=== PATIENT | female | born 1970 | race Caucasian/White ===

== ENCOUNTER 2024-08-15 20:35 | Emergency (ER) | payer SELFPAY ==
[2024-08-15 20:38] VITALS: BP 134/74; PULSE 74; RESP 18; TEMP 36.3; O2SAT 98; BMI 34.4
--- NOTE | 2024-08-15 21:34 | CT_ITS ---
EXAM: CT ANGIOGRAPHY HEAD WITHOUT AND WITH INTRAVENOUS CONTRAST CLINICAL INDICATION: headaches x 5 years TECHNIQUE: [facility] [place]/head CT angiography protocol performed without and with intravenous contrast. This CT exam was performed using one or more of the following dose reduction techniques: automated exposure control, adjustment of the mA and/or kV according to patient size, and/or use of iterative reconstruction technique. MIP reconstructed images were created and reviewed. CONTRAST: IV 75mL [id number] COMPARISON: No relevant prior studies available. FINDINGS: VASCULATURE: RIGHT INTERNAL CAROTID ARTERY: No significant findings. No significant stenosis at the intracranial/visualized segments. No aneurysm. RIGHT ANTERIOR CEREBRAL ARTERY: No significant abnormality. No occlusion or significant stenosis. Anterior communicating artery is present. No aneurysm. RIGHT MIDDLE CEREBRAL ARTERY: No significant abnormality. No occlusion or significant stenosis. No aneurysm. RIGHT POSTERIOR CEREBRAL ARTERY: No significant abnormality. No occlusion or significant stenosis. No aneurysm. RIGHT VERTEBRAL ARTERY: Normal as visualized. No significant stenosis at the intradural/visualized segments. No aneurysm. LEFT INTERNAL CAROTID ARTERY: Mild luminal irregularity of the cavernous segment of the left internal carotid artery likely secondary to arteriosclerosis without critical stenosis. No distinct aneurysm. LEFT ANTERIOR CEREBRAL ARTERY: No significant abnormality. No occlusion or significant stenosis. No aneurysm. LEFT MIDDLE CEREBRAL ARTERY: No significant abnormality. No occlusion or significant stenosis. No aneurysm. LEFT POSTERIOR CEREBRAL ARTERY: No significant abnormality. No occlusion or significant stenosis. No aneurysm. LEFT VERTEBRAL ARTERY: Normal as visualized. No significant stenosis at the intradural/visualized segments. No aneurysm. BASILAR ARTERY: No significant abnormality. No significant stenosis. No aneurysm. OTHER VASCULATURE: No vascular malformation. HEAD: BRAIN AND EXTRA-AXIAL SPACES: There is non-specific periventricular hypoattenuation which is most commonly related to chronic microvascular ischemic disease in a patient of this age. There is no mass, mass-effect, or shift of the midline structures. No evidence of acute infarct or acute intracranial hemorrhage. There is no evidence of pathologic extra-axial fluid. There is no hydrocephalus. Patent basal cisterns. Posterior fossa structures are unremarkable. BONES/JOINTS: No significant abnormality. No discrete lytic or blastic abnormalities. SINUSES: Normal as visualized. Clear. MASTOID AIR CELLS: Normal as visualized. Clear. ORBITS: Visualized globes, extraocular muscles, optic nerves and retrobulbar fat appear unremarkable. CT/CTA Head W/WO Contrast IMPRESSION: 1. Chronic microvascular ischemic changes. No evidence of acute infarct or hemorrhage. 2. No large vessel occlusion or critical arterial stenosis in the head. No vascular malformation or aneurysm. Electronically Signed: Thom Kelley DO at 22:52 EDT ,
--- NOTE | 2024-08-15 21:35 | EX.ED.VIS.HA ---
HPI History of Present Illness Chief Complaint: Headache Detail of Chief Complaint: Headache Informant: patient Narrative Narrative: Patient presents to the emergency department with complaint of a headache that started 2 hours ago. Patient states that she has been getting frequent headaches at least 1 a month for the last 5 years. Patient states has been getting Depo Provera for about 5 years but her last shot was in December of this year. She had sudden onset of headache tonight that was frontal and was severe. She denies any falls or head injuries. She denies recent illness. She denies family history of brain tumor or aneurysm. Patient states that currently her headache is actually dissipating and rates it down to a 2 or 3 out of 10. Typically when she gets the headache she does not have photophobia or nausea or vomiting. Patient has not seen anybody for these headaches. PFSH PFSH Allergy/AdvReac Type Severity Reaction Status Date / Time No Known Allergies Allergy Verified 08/15/24 20:38 Social History (System 06/16/19 @ 15:41 by Lydia Gallegos) Smoking Status: Never smoker ROS ROS ED Review of Systems ROS Unobtainable: other Constitutional Constitutional ED: Reports lethargy; Denies chills, fever(s), sweats or weight loss Eyes Eyes: Denies blurry vision, change in vision or diplopia ENT ENT ED: Denies rhinorrhea or sore throat Cardiovascular Cardiovascular: Denies chest pain, orthopnea or racing heartbeat Respiratory/Chest Respiratory/Chest: Denies cough, dyspnea, dyspnea on exertion, orthopnea or sputum Gastrointestinal Gastrointestinal: Denies abdominal pain, diarrhea, nausea or vomiting Genitourinary Genitourinary ED: Denies dysuria, hematuria or urinary frequency Musculoskeletal Musculoskeletal: Denies arthralgias, back pain, myalgias or neck pain Integumentary Denies abscess, Abrasions or rash Neurologic Neurologic: Reports headache(s); Denies weakness Psychiatric Psychiatric: Denies anxiety, depression or suicidal thoughts Endocrine Endocrinology: Denies polydipsia, polyphagia or polyuria Hematologic/Lymphatic Hematologic/Lymphatic: Denies easy bleeding, easy bruising or lymphadenopathy Allergic/Immunologic Allergic/Immunologic ED: Denies mouth swelling, tongue swelling or urticaria EXAM Physical Exam Const Vital Signs: 08/15/24 20:38 08/15/24 22:37 Temperature 97.3 F L Temperature Source Temporal Pulse Rate 74 Respiratory Rate 18 Blood Pressure 134/74 H 139/88 H Blood Pressure Mean 94 105 Pulse Ox 98 Oxygen Delivery Method Room Air Positive well nourished and well developed General Appearance ED: well developed and NAD HEENT Reports TM's clear and moist mucous membranes normocephalic and atraumatic; Negative for trauma or tenderness Tympanic Membrane ED: Yes TM's clear Eyes PERRL and EOMs intact bilaterally General Eye ED: Negative for pale conjunctiva or scleral icterus Neck no lymphadenopathy, supple and no JVD General: Negative for tenderness Chest Wall inspection of chest normal and palpation of chest normal Chest: Negative for tenderness Resp normal respiratory effort and clear to auscultation bilaterally Effort and Inspection: Negative for respiratory distress or pain with movement Auscultation: Negative for rhonchi, wheezes or diminished lung sounds Cardio regular rate, regular rhythm, S1 normal heart sound, S2 normal heart sound and no murmurs Peripheral Pulses: pulses 2+ throughout GI normal to inspection, nondistended, normoactive bowel sounds, soft to palpation, non-tender, non-distended and no masses Back/Spine no CVA tenderness and no thoracic nor lumbar tenderness Extremity normal to inspection General Extremety ED: Negative for edema General Extremity: Negative for edema Neuro oriented x3, CN's II-XII intact bilaterally, no sensory deficits noted and gait normal Neuro Narrative: Finger-nose and heel melendez testing within normal limits, negative Romberg, negative pronator drift, fundi benign. Sensorium / Orientation: awake, alert, oriented to person, oriented to place and oriented to time Motor Exam: strength 5/5 throughout and strength abnormal Psych mental status grossly normal Skin no rashes or lesions noted and no wounds MDM MDM MDM Narrative Medical decision making narrative: Patient presents with headache intermittently over the last 5 years. She had been on Depo-Provera and is not sure if they were related. Normally she does not take anything for it and it goes away in a couple hours or if she sleeps they go away. In the differential would be migraine versus tension headache or brain tumor or brain aneurysm which I feel is less likely. Patient also states that she came in today because the headache was more severe and came on suddenly. IV line established. Patient had a CTA of the head and neck which was unremarkable other than some chronic microvascular ischemic changes without evidence of infarct or hemorrhage. No large vessel occlusions noted or aneurysms. On repeat evaluation patient's headaches resolved. Etiology of headaches unclear. Patient will be referred to neurology for follow-up. Radiography Diagnostic Testing: Clinical Impression(s) from Imaging Studies Head CTA 08/15/24 21:34 IMPRESSION: 1. Chronic microvascular ischemic changes. No evidence of acute infarct or hemorrhage. 2. No large vessel occlusion or critical arterial stenosis in the head. No vascular malformation or aneurysm. Electronically Signed: Thom Kelley DO at 22:52 EDT , Discharge Plan Triage Chief Complaint: Headache ED Provider: Anita Lam Dx/Rx/DC Orders Clinical Impression: Headache Instructions: Self-Care for Headaches, ED Headache Unspecified Primary Care Provider: Care Physician,No Primary Referrals: German Hammond MD [Non-Staff -Ordering Privileges] - 3-5 Days Care Physician,No Primary [Primary Care Provider] - Print Language: Frisian Disposition Disposition: Home, Self Care
[2024-08-15 22:37] VITALS: BP 139/88
[2024-08-15 23:12] VITALS: BP 132/87; PULSE 78; RESP 16; TEMP 36.9; O2SAT 100
== END 2024-08-15 23:13 | disposition home or self-care (01) ==
PROVIDERS: Emergency Provider Emergency Medicine; Visit Provider Emergency Medicine
DX: R51.9 Headache, unspecified (principal)
CPT/HCPCS: 70496; 99283; Q9967; A4216